=== PATIENT | female | born 1950 | race Caucasian/White ===

== ENCOUNTER 2016-12-18 17:10 | Inpatient (IN) ==
--- NOTE | 2016-12-18 18:15 | Emergency Department Note ---
Disposition Clinical Impression: DVT (deep venous thrombosis) Qualifiers: DVT location: lower extremity Affected thrombotic vein of extremity: unspecified vein of extremity Laterality: right Chronicity: acute Qualified Code (s): I82.401 - Acute embolism and thrombosis of unspecified deep veins of right lower extremity Disposition: Admitted As Inpatient Condition: Fair Referrals: Warren Echeverria MD [Primary Care Provider] - Forms: ED Satisfaction Letter Time of Disposition: 19:08 Extremity Problem HPI - General Chief complaint: ED Extremity Problem,Nontraumatic Stated complaint: (+) DVT Time Seen by Provider: 12/18/16 18:03 Source: patient Limitations: no limitations Nursing Notes Reviewed: Yes Vital Signs Reviewed: Yes - History of Present Illness HPI Narrative: 66-year-old female who had a hysterectomy at [facility] on December 09 who comes in today with right leg pain. Patient had a venous Doppler done today which showed a right common femoral incompressible vein and a right superficial femoral demonstrates a partially compressible pain the right popliteal demonstrates an incompressible pain. Pt Subjective Complaint: extremity pain, extremity swelling Onset (ago): day(s) Consistency: constant Injury Location: right, lower extremity Pain Scale: 9 Quality: burning, aching Radiation: none Improves with: nothing Worsens with: walking Associated symptoms: Reports: denies other symptoms. Denies: chest pain, shortness of breath Context: recent surgery/procedure - Related Data Home Medications Medication Instructions Recorded Confirmed Escitalopram [Lexapro] 10 mg PO QPM 12/05/15 06/04/16 traZODone [TraZODone] 100 mg PO QPM 12/05/15 06/04/16 Etodolac 300 mg PO DAILY 01/07/16 06/04/16 Previous Rx's Medication Instructions Recorded HYDROcodone/Acet 5/325 mg [[place] 1 tab PO BID PRN #30 tablet 06/04/16 5-325 mg] Allergies Allergy/AdvReac Type Severity Reaction Status Date / Time No Known Allergies Allergy Verified 01/07/16 08:35 Constitutional: Denies: fever, chills, weakness, weight change Eyes: Denies: eye pain, eye discharge, vision change ENT ED: Denies: ear pain, throat pain, dental pain, hearing loss, epistaxis, congestion, dysphagia Cardiovascular: Denies: chest pain, palpitations, dyspnea on exertion, edema, syncope Respiratory: Denies: cough, dyspnea, wheezes, hemoptysis, stridor Gastrointestinal: Denies: abdominal pain, nausea, vomiting, diarrhea, constipation, hematemesis, melena, hematochezia Genitourinary: Denies: dysuria, frequency, hematuria, discharge Musculoskeletal: Reports: arthralgia. Denies: back pain, neck pain, myalgia Integumentary: Denies: rash, abrasion, lesions Neurological: Denies: headache, weakness, numbness, paresthesias, confusion, abnormal gait, vertigo Psychiatric: Denies: anxiety, depression, suicidal thoughts, homicidal thoughts , auditory hallucinations, visual hallucinations Endocrine: Denies: fatigue Hematological/Lymphatic: Denies: easy bleeding, easy bruising Allergic/Immunologic: Denies: facial swelling, urticaria Past Medical History - Past Medical History Medical history: Reports: arthritis, asthma, other Surgical history: Reports: cholecystectomy, other Psychiatric history: Reports: anxiety, depression - Social History Smoking Status: Never smoker Smokeless Tobacco Status: No Alcohol use: Reports: none Drug use: Reports: none Physical Exam - General Limitations: no limitations General appearance: alert - Head Head exam: atraumatic, normocephalic, normal inspection - Eye Eye exam: Present: normal appearance, PERRL, EOMI - ENT ENT exam: normal exam, normal oropharynx, mucous membranes moist - Neck Neck exam: Present: normal inspection, full ROM, trachea midline - Chest Chest inspection: Present: normal inspection, symmetric chest wall rise - Respiratory Respiratory exam: Present: normal lung sounds bilaterally - Cardiovascular Cardiovascular exam: Present: regular rate, normal rhythm, normal heart sounds - Abdominal Exam Abdominal exam: Present: soft, Non-Tender. Absent: tenderness, distention, guarding, rebound, rigidity - Expanded Lower Extremity Exam Lower leg exam: Present: tenderness (Right calf), swelling Neurovascular/Tendon exam: Absent: motor deficit, sensory deficit, tendon deficit - Back Exam Back exam: Present: normal inspection, full ROM. Absent: tenderness - Neurological Exam Neurological exam: Present: alert, oriented X3 - Psychiatric Psychiatric exam: Present: normal affect, normal mood - Skin Skin exam: Present: warm, dry, intact, normal color Course - Reevaluation(s) Reevaluation #1: Patient is a 66-year-old with a documentation of a DVT. Patient will be admitted for Lovenox. Time: 19:09 - Consultations Consultation #1: Discussed with , admit to the hospitalist Kailey and he will see in consult. Time: 18:45 Consultation #2: Discussed with Dr. Balderas, admit. Time: 19:10 Vital Signs Temperature 98.2 F 12/18/16 17:21 Pulse Rate 62 12/18/16 17:21 Respiratory Rate 16 12/18/16 17:21 Blood Pressure 150/67 12/18/16 17:21 O2 Sat by Pulse Oximetry 97 12/18/16 17:21 Temperature 98.2 F 12/18/16 17:21 Pulse Rate 62 12/18/16 17:21 Respiratory Rate 16 12/18/16 17:21 Blood Pressure 150/67 12/18/16 17:21 O2 Sat by Pulse Oximetry 97 12/18/16 17:21 Oxygen Delivery Oxygen Delivery Room Air
[2016-12-18] MEDS ORDERED: Ondansetron 4 MG/2 ML VIAL IVP ONE (18:56)
[2016-12-18] MEDS ORDERED: *HR* HYDROmorphone (PF) 1 MG/ML SYRINGE IVP ONE (18:56)
[2016-12-18] MEDS ORDERED: *HR* Enoxaparin 120 MG/0.8 ML SYRINGE SQ SCH (19:15)
[2016-12-18 19:18] LABS: Basophils % 0.3 %; Eosinophils # 0.1 K/mcL (0.0-0.6); Eosinophils % 1.5 %; Hematocrit 40.5 % (35.3-44.9); Hemoglobin 13.6 g/dL (11.5-15.4); Immature Granulocytes % 0.4 % (0-4); Lymphocytes # 2.4 K/mcL (0.6-4.6); Lymphocytes % 26.9 %; Mean Corpuscular HGB Conc 33.6 g/dL (31.6-35.5); Mean Corpuscular Hemoglobin 32.2 pg (28.0-33.3); Mean Platelet Volume 10.6 fL (9.4-12.4); Monocytes # 0.7 K/mcL (0.0-1.3); Monocytes % 7.6 %; Neutrophils # 5.7 K/mcL (1.6-8.9); Platelet Count 220 K/mcL (140-400); Red Blood Count 4.22 M/mcL (3.82-4.97); Red Cell Distribution Width 12.9 % (11.5-14.5); Segmented Neutrophils % 63.3 %
[2016-12-18 19:22] LABS: INR 1.1
[2016-12-18 19:25] LABS: Activated Partial Thrombo Time 28.3 Seconds (26.0-36.0)
[2016-12-18 19:29] LABS: BUN/Creatinine Ratio 14 (6-26); Blood Urea Nitrogen 11 mg/dL (7-20); Calcium 9.1 mg/dL (8.6-10.8); Carbon Dioxide 24 mEq/L (19-29); Chloride 104 mEq/L (98-109); Glucose 85 mg/dL (70-99); Osmolality,Calculated 287 (280-300); Potassium 3.8 mEq/L (3.5-4.5); Sodium 139 mEq/L (136-145); eGFR For African Americans > 60 (> 60); eGFR For Non-African Americans > 60 (> 60)
--- NOTE | 2016-12-18 20:51 | Internal Med History&Physical ---
Date of Encounter: 12/18/16 Time of Encounter: 20:51 Assessment and Plan (1) DVT (deep venous thrombosis) Current visit: Yes Status: Acute patient recently had ?endometrial cancer diagnosis for which she underwent HOMAR+ BSO+lymph node biopsy and is scheduled to begin chemotherapy soon, she comes in today with RLE swelling in this setting and found to have an acute DVT in the femoral area, this is thus provoked, and will benefit from systemic anticoagulation for 3-6 months, we will get oncology to weigh in, we will do therapeutic lovenox dosing pain management and supportive care Qualifiers: DVT location: lower extremity Affected thrombotic vein of extremity: femoral Laterality: right Chronicity: acute Qualified Code(s): I82.411 - Acute embolism and thrombosis of right femoral vein (2) Reactive airway disease Current visit: Yes Status: Chronic currently stable, will do nebs PRN Qualifiers: Asthma severity: mild intermittent Asthma complication type: uncomplicated Qualified Code(s): J45.20 - Mild intermittent asthma, uncomplicated (3) Lumbar foraminal stenosis Current visit: Yes Status: Chronic per pt she was being planned for back surgery when they discovered the post menopausal bleed, this has thus been placed on the back burner for now, we will do pain management (4) GERD (gastroesophageal reflux disease) Current visit: Yes Status: Acute not on home medications, not symptomatic currently, will monitor Qualifiers: Esophagitis presence: without esophagitis Qualified Code(s): K21.9 - Gastro -esophageal reflux disease without esophagitis Internal Medicine - H&P: HPI Chief complaint: right lower extremity pain Admitted From: Emergency Dept Plans for Post Hospital Care: Home History of present illness: Ms. Osman is a 66 year old female with morbid obesity and recent HOMAR+BSO with lymph node dissection at [facility] on 12/09/16 who was brought in with right lower extremity pain and swelling. She was doing well until Wednesday night when she felt a "burning searing" pain in her right lower extremity that over the course of hours was increasingly worsening. The pain was 9/10 in severity and located mainly in the right calf area. It was worse with movement and was limiting her activities. She came in today because it was not improving. She denies dyspnea, dyspnea on exertion, pleuritic chest pain, lightheadedness or a feeling of apprehension. Of note she had the previously mentioned procedure because she was having post menopausal bleeding and endometrial biopsy was suspicious for malignancy. She is slated to be seen on 12/29/16 to start some form of chemotherapy. PAST MEDICAL/SURGICAL HISTORY Left knee arthritis multi level lumbar DJD Lumbar neural foramina stenosis L3/L4 through L5/S1 Lumbar radiculopathy Morbid Obesity GERD Reactive airway disease chronic back pain Cholecystectomy 2004 Tubal ligation Colonoscopy 2012 Back ablation 11/2015 [facility] 12/2015 SOCIAL HISTORY Non smoker, does not drink and lives at home FAMILY HISTORY Brother has Hodgkins lymphoma, bladder cancer, father is had liver cirrhosis with cancer sister's: breast cancer Past Med Surg Social Fam HX - Past Medical History Medical history: arthritis, asthma, other Psychiatric history: anxiety, depression - Past Surgical History Surgical History: cholecystectomy, other - Social History Smoking Status: Never smoker Smokeless Tobacco Status: No Alcohol use: none Drug use: none Internal Medicine - H&P: Meds HYDROcodone/Acet 5/325 mg [[place] 5-325 mg] 1 tab PO BID PRN #30 tablet 06/04/16 [Rx] Escitalopram [Lexapro] 20 mg PO HS 12/18/16 [History] OxyCODONE Immed Rel [Roxicodone 5 MG] 5 mg PO Q4H PRN 12/18/16 [History] Trazodone HCl 100 mg PO HS PRN 12/18/16 [History] Allergies No Known Allergies Allergy (Verified 01/07/16 08:35) All Systems PM: A 10-system review of systems was performed and is negative for pertinent findings except as documented above in the HPI. - Constitutional Vitals: Temp Pulse Resp BP Pulse Ox 98.1 F 64 18 138/66 97 12/18/16 20:00 12/18/16 19:30 12/18/16 20:00 12/18/16 20:00 12/18/16 19:30 PHYSICAL EXAMINATION: GENERAL: Adult female, obese looking, lying in bed with no sign of distress, Alert, HEENT: NC/AT, EOMI, PERRLA, anicteric sclera, normal conjunctiva, supple, clear nares, moist mucous membranes, clear oropharynx, central uvula RESP: lungs are clear to auscultation bilaterally, good AE bilaterally, No crackles or wheeze CARDIO: Normal hearts sounds; S1 and 2, RRR with no murmurs, no JVD, no ankle edema GI: Soft, full, no tenderness, no organomegaly felt, normal bowel sounds heard MUSCULOSKELETAL: grossly normal movements bilaterally, right lower extremity calf tenderness with mild swelling, no redness noted NEUROLOGIC: CN 2-12 intact grossly. No motor/sensory deficit appreciated, PSYCHIATRY: AAO x 3. Mood is fair, SKIN: no skin rash or ulcers noted Internal Med - H&P Results - Labs CBC & Chem 7: 12/19/16 02:35 12/19/16 02:35 - Diagnostic Studies Venous US Status: image reviewed by me
[2016-12-18] MEDS ORDERED: traZODone 50 MG TABLET PO PRN (21:12)
[2016-12-18] MEDS ORDERED: Naloxone 0.4 MG/ML INJ IVP PRN (21:13)
[2016-12-19] MEDS: *HR* OxyCODONE Immed Rel 5 MG TABLET PO PRN ×4 (00:02→18:44)
[2016-12-19 03:21] LABS: Hematocrit 35.6 % (35.3-44.9); Hemoglobin 12.2 g/dL (11.5-15.4); Mean Corpuscular HGB Conc 34.3 g/dL (31.6-35.5); Mean Corpuscular Hemoglobin 32.4 pg (28.0-33.3); Mean Corpuscular Volume 94.7 fL (83.0-100.0); Platelet Count 214 K/mcL (140-400); Red Blood Count 3.76 M/mcL (3.82-4.97); Red Cell Distribution Width 13.1 % (11.5-14.5)
[2016-12-19 03:42] LABS: BUN/Creatinine Ratio 16 (6-26); Blood Urea Nitrogen 12 mg/dL (7-20); Calcium 8.5 mg/dL (8.6-10.8); Carbon Dioxide 23 mEq/L (19-29); Chloride 105 mEq/L (98-109); Glucose 103 mg/dL (70-99); Magnesium 1.6 mg/dL (1.6-2.6); Osmolality,Calculated 282 (280-300); Phosphorous 4.1 mg/dL (2.3-4.7); Potassium 4.1 mEq/L (3.5-4.5); Sodium 136 mEq/L (136-145); eGFR For African Americans > 60 (> 60); eGFR For Non-African Americans > 60 (> 60)
[2016-12-19] MEDS: *HR* Enoxaparin 120 MG/0.8 ML SYRINGE SQ SCH ×2 (09:22→21:04)
--- NOTE | 2016-12-19 12:15 | Oncology Inp Consult Note ---
Date of Encounter: 12/19/16 Time of Encounter: 12:14 - Data of Consult Patient: new to practice Consult date: 12/19/16 Requesting Physician: Gwendolyn Dominguez Primary Care Provider: Warren Echeverria MD - Consult Narrative Reason for consult: Suspected hypercoagulable state History of present illness: Ms. Osman is a 66 year old female patient of Dr. Warren Echeverria seen in consultation regarding suspected hypercoagulable state after presenting with painful swelling in the right lower extremity in the postoperative setting. She had a HOMAR/BSO by Dr. 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 She was making steady, expected recovery from her surgery but developed painful swelling in her right lower extremity and worsening emergency room for this. Lower extremity Doppler confirmed an acute DVT involving the right common femoral, superficial femoral, popliteal veins. Left lower extremity was unremarkable. She is hospitalized for parenteral anticoagulation and hematology is consulted for recommendations regarding anticoagulation management and need for evaluation of suspected hypercoagulable state. Patient seen and examined at bedside. She is doing quite well and has no new physical complaints. She has never had any prior clotting episodes. No previous hematologic disorder. I do not have records of her recent surgery including pathology although endometrial biopsy by Dr. Lew, 11/18/16 showed poorly differentiated endometrial adenocarcinoma. She has been informed of the need for adjuvant radiation therapy based on pathology suggesting that she may have high risk disease. She will be meeting with Dr. Toledo in the near future for further discussion. Patient has not had any other respiratory symptoms to suggest underlying pulmonary embolism. She has not had any recent constitutional symptoms such as fevers, chills, weight or appetite changes, aquagenic pruritus etc. to suggest underlying hematologic disorder or malignancy. She is currently been anticoagulate with Lovenox and appears to be tolerating well with no unexpected side effects of bleeding complications. I reviewed her records for details of ongoing care by hospitalist team. The ED team was also kind enough to discuss patients case with me at time of initial presentation. Rest of past medical, surgical, family, social history detailed below and verified with patient today. Review of systems: 12 point review of systems performed with patient and positive findings noted in history of present illness. All other systems are negative: Physical exam: Vital Signs Temp 97.9 F 12/19/16 10:53 Pulse 65 12/19/16 10:53 Resp 16 12/19/16 10:53 BP 110/71 12/19/16 10:53 Pulse Ox 95 12/19/16 10:53 GENERAL: Alert and oriented, comfortable appearing. Obese body habitus. Mental Status: Affect appropriate for circumstances HEENT: Sclerae anicteric. No mucositis or thrush. No other oral or pharyngeal lesions or erythema. Skin: No rashes or petechiae. No evidence of skin malignancy Lymph nodes: No cervical, supraclavicular, axillary, or inguinal adenopathy. Lungs: Clear to auscultation bilaterally. Clear to percussion bilaterally. Cardiovascular: Regular rate and rhythm. No gallops, murmurs, or rubs. Abdomen: Soft, nontender; No organomegaly or masses palpable. Extremities: No edema. No calf swelling or tenderness. No joint deformity. Neurologic: Alert, normal gait; no focal weakness or sensory abnormalities. Results: Laboratory Last Values WBC 8.2 K/mcL (4.3-11.1) 12/19/16 02:35 RBC 3.76 M/mcL (3.82-4.97) L 12/19/16 02:35 Hgb 12.2 g/dL (11.5-15.4) 12/19/16 02:35 Hct 35.6 % (35.3-44.9) 12/19/16 02:35 MCV 94.7 fL (83.0-100.0) 12/19/16 02:35 MCH 32.4 pg (28.0-33.3) 12/19/16 02:35 MCHC 34.3 g/dL (31.6-35.5) 12/19/16 02:35 RDW 13.1 % (11.5-14.5) 12/19/16 02:35 Plt Count 214 K/mcL (140-400) 12/19/16 02:35 MPV 11.0 fL (9.4-12.4) 12/19/16 02:35 Immature Gran % 0.4 % (0-4) 12/18/16 19:05 Seg Neutrophils % 63.3 % 12/18/16 19:05 Lymphocytes % 26.9 % 12/18/16 19:05 Monocytes % 7.6 % 12/18/16 19:05 Eosinophils % 1.5 % 12/18/16 19:05 Basophils % 0.3 % 12/18/16 19:05 Neutrophils # 5.7 K/mcL (1.6-8.9) 12/18/16 19:05 Lymphocytes # 2.4 K/mcL (0.6-4.6) 12/18/16 19:05 Monocytes # 0.7 K/mcL (0.0-1.3) 12/18/16 19:05 Eosinophils # 0.1 K/mcL (0.0-0.6) 12/18/16 19:05 Basophils # 0.0 K/mcL (0.0-0.2) 12/18/16 19:05 PT 12.0 Seconds (9.4-12.1) 12/18/16 19:05 INR 1.1 12/18/16 19:05 APTT 28.3 Seconds (26.0-36.0) 12/18/16 19:05 Sodium 136 mEq/L (136-145) 12/19/16 02:35 Potassium 4.1 mEq/L (3.5-4.5) 12/19/16 02:35 Chloride 105 mEq/L (98-109) 12/19/16 02:35 Carbon Dioxide 23 mEq/L (19-29) 12/19/16 02:35 BUN 12 mg/dL (7-20) 12/19/16 02:35 Creatinine 0.76 mg/dL (0.57-1.11) 12/19/16 02:35 Est GFR ( Amer) > 60 (> 60) 12/19/16 02:35 Est GFR (Non-Af Amer) > 60 (> 60) 12/19/16 02:35 BUN/Creatinine Ratio 16 (6-26) 12/19/16 02:35 Glucose 103 mg/dL (70-99) H 12/19/16 02:35 Calculated Osmolality 282 (280-300) 12/19/16 02:35 Calcium 8.5 mg/dL (8.6-10.8) L 12/19/16 02:35 Phosphorus 4.1 mg/dL (2.3-4.7) 12/19/16 02:35 Magnesium 1.6 mg/dL (1.6-2.6) 12/19/16 02:35 Radiographic studies: Impression/recommendations: Right lower extremity DVT: Likely provoked by recent high risk surgery ( hysterectomy) but there may have been an additional contribution from body habitus. At today's visit, I had a detailed discussion with the patient regarding the natural history and management of venous thromboembolic disorders. For her acute DVT, he will require anticoagulation for 3-6 months depending on recurrence risk factors and residual clot burden on imaging. After she completes planned course of anticoagulation, we will check extremity doppler and chest CT angiogram to eval. residual clot burden prior to stopping anticoagulation. She is currently on anticoagulation with Lovenox and we discussed options for oral anticoagulation. We discussed the risks versus benefits of Coumadin compared to NOACs. She is comfortable with NOACs and has no contraindication. I think it is reasonable to go ahead and transition her to any of the different of NOACs options such as Xarelto, Eliquis, Pradaxa depending on her coverage situation. I will recommend to give a first his overall anticoagulant within 1 her last dose of Lovenox and then stop Lovenox. Once she is on oral anticoagulation, she can be discharged home and will arrange for short interval out patient follow up with hematology for ongoing management including anticoagulation monitoring. Long-term, high-risk medication use:. We reviewed the risks versus benefits of long-term anticoagulation including thromboprophylaxis benefit versus bleeding risk. She is tolerating anticoagulation well with no unexpected complications. She will require continued monitoring for tolerability of anticoagulation. I informed that either myself or will be happy to monitor her anticoagulation. She will need monitoring of basic coagulation panel, CBCs, liver/kidney function periodically. Additionally, she understands that if any surgical or invasive procedures planned, she will need periprocedural anticoagulation management. Suspected hypercoagulable state: Her current presentation has also signatures of unprovoked clot in the perioperative setting but we will go ahead and complete thrombophilia testing for completeness. This can be completed on an urgent basis when we are ready to consider stopping anticoagulation. If thrombophilia testing is negative, we'll consider lower intensity strategy such as LDASA, or stop altogether if no other risk factors. We'll follow the patient along side you during this hospitalization but please do not hesitate to call regarding interval hematologic questions as they arise. Thank you for your excellent ongoing care for allowing us to see her while in- house. This report was created using voice recognition software and may contain errors. It was signed but not edited to expedite communication. Corrections will be made in a separate addendum as needed. Past Med Surg Social Fam HX - Past Medical History Medical history: arthritis, asthma, other Psychiatric history: anxiety, depression - Past Surgical History Surgical History: cholecystectomy, other - Social History Smoking Status: Never smoker Smokeless Tobacco Status: No Alcohol use: none Drug use: none Medications and Allergies HYDROcodone/Acet 5/325 mg [[place] 5-325 mg] 1 tab PO BID PRN #30 tablet 06/04/16 [Rx] Escitalopram [Lexapro] 20 mg PO HS 12/18/16 [History] OxyCODONE Immed Rel [Roxicodone 5 MG] 5 mg PO Q4H PRN 12/18/16 [History] Trazodone HCl 100 mg PO HS PRN 12/18/16 [History] Allergies No Known Allergies Allergy (Verified 01/07/16 08:35) Oncology - Exam - Constitutional Vitals: Temp Pulse Resp BP Pulse Ox 97.9 F 65 16 110/71 95 12/19/16 10:53 12/19/16 10:53 12/19/16 10:53 12/19/16 10:53 12/19/16 10:53 Oncology - Results - Labs Labs: Short CBC 12/19/16 Range/Units 02:35 WBC 8.2 (4.3-11.1) K/mcL Hgb 12.2 (11.5-15.4) g/dL Hct 35.6 (35.3-44.9) % Plt Count 214 (140-400) K/mcL BMP 12/19/16 02:35 Sodium 136 Potassium 4.1 Chloride 105 Carbon Dioxide 23 BUN 12 Creatinine 0.76 Glucose 103 H Calcium 8.5 L Consult Discharge Plan - Plan Referrals: Warren Echeverria MD [Primary Care Provider] - (web request sent on 12/19/16)
--- NOTE | 2016-12-19 14:45 | Internal Med Progress Note ---
Date of Encounter: 12/19/16 Time of Encounter: 10:00 - Subjective Interval history: Patient reports worsening of swelling of right lower extremity with no associated pain. No shortness of breath. No chest pain. No headaches. No Lightheadedness. - Constitutional Vitals: Temp Pulse Resp BP Pulse Ox 97.9 F 65 16 110/71 95 12/19/16 10:53 12/19/16 10:53 12/19/16 10:53 12/19/16 10:53 12/19/16 10:53 General appearance: Present: cooperative, A&O X 3, pleasant, no acute distress, answers questions appropriately - Neck Neck exam general surgery: Present: supple, trachea midline. Absent: lymphadenopathy - Respiratory Respiratory exam: Present: CTAB - Cardiovascular Cardiovascular exam: Present: RRR - GI/Abdominal GI/Abdominal exam: Present: normal bowel sounds, soft. Absent: distended, tenderness - Extremities Exam Additional comments: Right lower extremity swelling, no erythema - Back Exam Back exam: Absent: CVA tenderness (L), CVA tenderness (R) - Neurological Exam Neurological exam: Present: alert, oriented X3, no focal deficits, strengths equal and symetr throughout. Absent: facial droop, speech deficit - Skin Skin exam: Absent: rash Internal Medicine: Result - Labs CBC & Chem 7: 12/19/16 02:35 12/19/16 02:35 Labs: Short CBC 12/19/16 Range/Units 02:35 WBC 8.2 (4.3-11.1) K/mcL Hgb 12.2 (11.5-15.4) g/dL Hct 35.6 (35.3-44.9) % Plt Count 214 (140-400) K/mcL [facility] 12/19/16 02:35 Sodium 136 Potassium 4.1 Chloride 105 Carbon Dioxide 23 BUN 12 Creatinine 0.76 Glucose 103 H Calcium 8.5 L - ABG Interpretation ABG results: PT/INR, D-dimer PT 12.0 Seconds (9.4-12.1) 12/18/16 19:05 Consult Discharge Plan - Plan Referrals: Warren Echeverria MD [Primary Care Provider] - (web request sent on 12/19/16)
[2016-12-20] MEDS: *HR* OxyCODONE Immed Rel 5 MG TABLET PO PRN ×2 (04:21→09:06)
[2016-12-20 04:43] LABS: Basophils % 0.3 %; Eosinophils # 0.2 K/mcL (0.0-0.6); Eosinophils % 2.1 %; Hematocrit 39.4 % (35.3-44.9); Hemoglobin 13.1 g/dL (11.5-15.4); Immature Granulocytes % 0.4 % (0-4); Lymphocytes # 2.6 K/mcL (0.6-4.6); Lymphocytes % 28.5 %; Mean Corpuscular HGB Conc 33.2 g/dL (31.6-35.5); Mean Corpuscular Hemoglobin 31.7 pg (28.0-33.3); Mean Corpuscular Volume 95.4 fL (83.0-100.0); Mean Platelet Volume 10.5 fL (9.4-12.4); Monocytes # 0.7 K/mcL (0.0-1.3); Monocytes % 7.7 %; Neutrophils # 5.5 K/mcL (1.6-8.9); Platelet Count 259 K/mcL (140-400); Red Blood Count 4.13 M/mcL (3.82-4.97); Red Cell Distribution Width 12.7 % (11.5-14.5)
[2016-12-20 04:55] LABS: BUN/Creatinine Ratio 14 (6-26); Blood Urea Nitrogen 11 mg/dL (7-20); Calcium 9.1 mg/dL (8.6-10.8); Carbon Dioxide 21 mEq/L (19-29); Chloride 107 mEq/L (98-109); Glucose 112 mg/dL (70-99); Magnesium 1.7 mg/dL (1.6-2.6); Osmolality,Calculated 286 (280-300); Potassium 4.2 mEq/L (3.5-4.5); Sodium 138 mEq/L (136-145); eGFR For African Americans > 60 (> 60); eGFR For Non-African Americans > 60 (> 60)
--- NOTE | 2016-12-20 08:58 | Discharge Summary ---
Date of Encounter: 12/20/16 Time of Encounter: 08:54 - Discharge Diagnosis (1) DVT (deep venous thrombosis) Priority: Primary Status: Acute Qualifiers: DVT location: lower extremity Affected thrombotic vein of extremity: femoral Laterality: right Chronicity: acute Qualified Code(s): I82.411 - Acute embolism and thrombosis of right femoral vein (2) Lumbar foraminal stenosis Priority: Secondary Status: Chronic (3) GERD (gastroesophageal reflux disease) Priority: Secondary Status: Chronic Qualifiers: Esophagitis presence: without esophagitis Qualified Code(s): K21.9 - Gastro -esophageal reflux disease without esophagitis - Discharge Medications Prescriptions: Rivaroxaban [Xarelto] 1 dose PO AD 30 Days Rivaroxaban [Xarelto] 20 mg PO DAILY #30 tablet Home Medications: HYDROcodone/Acet 5/325 mg [Stark 5-325 mg] 1 tab PO BID PRN #30 tablet 06/04/16 [Rx] Escitalopram [Lexapro] 20 mg PO HS 12/18/16 [History] OxyCODONE Immed Rel [Roxicodone 5 MG] 5 mg PO Q4H PRN 12/18/16 [History] Trazodone HCl 100 mg PO HS PRN 12/18/16 [History] Rivaroxaban [Xarelto] 1 dose PO AD 30 Days 12/20/16 [Rx] Rivaroxaban [Xarelto] 20 mg PO DAILY #30 tablet 12/20/16 [Rx] Allergies/Adverse Reactions: Allergies No Known Allergies Allergy (Verified 01/07/16 08:35) Date of admission: 12/19/16 16:05 Primary care physician: Warren Echeverria MD - Patient Status Disposition: Home, Self-Care Condition: Good Functional capacity at discharge: independent ambulation Overall status at discharge: patient is progressing back to baseline - Discharge Instructions Instructions: Rivaroxaban (By mouth), Deep Venous Thrombosis (DC) Follow Up With: Warren Echeverria MD [Primary Care Provider] - (web request sent on 12/19/16) Additional Instructions: please follow up with primary care doctor in 1 week to start a weight loss program. follow up in the hematology clinic with dr Barron for blood clot in your leg (he will call you with appt) you are being prescribed a blood thinner, if you notice any bleeding please call your doctor or go to nearest emergency room - Diet and Activity Activity: resume usual activities as tolerated Diet: low fat, low cholesterol Interval History: patient denies any shortness of breath or chest pain. no worsening of right LE swelling. Hospital course: Ms. Osman is a 66 year old female with past medical history of chronic lumbar back pain and morbid obesity who was recently diagnosed with endometrial cancer and underwent HOMAR/BSO/lymph node biopsy on 12/09/2016 and she is scheduled to start radiation therapy on December 29. She presents with a chief complaint of right lower extremity pain and swelling. Venous Doppler of right lower extremity shows acute thrombosis in right common femoral vein, superficial femoral vein and popliteal vein. Normal left lower extremity venous Doppler. She was started on Lovenox twice a day. Her acute DVT is likely provoked from recent surgery. She remained hemodynamically stable, no chest pain, no shortness of breath. Right lower extremity swelling did not get worse. Plan: Patient will be discharged on Cerner L2. Follow-up in the oncology clinic. Patient was explained in detail her diagnosis and treatment. She verbalized understanding and agreed with the plan. All questions answered. - Time Spent with Patient Total time spent providing and/or coordinating discharge services: - Constitutional Vitals: Temp Pulse Resp BP Pulse Ox 97.9 F 72 16 119/69 97 12/20/16 07:52 12/20/16 07:52 12/20/16 07:52 12/20/16 07:52 12/20/16 07:52 General appearance: Present: cooperative, A&O X 3, pleasant, no acute distress, answers questions appropriately - Neck Neck exam general surgery: Present: supple, trachea midline. Absent: lymphadenopathy - Respiratory Respiratory exam: Present: CTAB - Cardiovascular Cardiovascular exam: Present: RRR - GI/Abdominal GI/Abdominal exam: Present: normal bowel sounds, soft. Absent: distended, tenderness - Extremities Exam Extremities exam: Present: pedal edema (mild right lower extremity swelling, not worse compared to yesterday. no erythema. ) - Neurological Exam Neurological exam: Present: alert, oriented X3, no focal deficits, strengths equal and symetr throughout. Absent: facial droop, speech deficit - Skin Skin exam: Absent: rash
[2016-12-20] MEDS ORDERED: *HR* Rivaroxaban 15 MG TABLET PO SCH (09:00)
[2016-12-20 11:27] VITALS: BP 133/70
== END 2016-12-20 12:12 | disposition home or self-care (01) | DRG 300 ==
LOC: 2ANU 17:10 → EMEROO 17:10 → SUATTDRO 19:48 → 2ANU 20:08
PROVIDERS: ADMIT Internal Medicine; ATTEND Internal Medicine

== ENCOUNTER 2020-01-02 16:11 | Inpatient (IN) ==
[2020-01-02] MEDS ORDERED: Ondansetron ODT 4 MG TAB.RAPDIS SL STA (17:14)
[2020-01-02] MEDS ORDERED: *HR* Promethazine 25 MG/ML VIAL IVP STA (17:42)
[2020-01-02 17:51] LABS: Troponin I < 0.03 ng/mL (< 0.04)
[2020-01-02] MEDS ORDERED: 0.9 % Sodium Chloride 1,000 ML ONE (17:55)
[2020-01-02] MEDS ORDERED: Isovue-370 500 ML BOTTLE IVP ONE (18:20)
[2020-01-02] MEDS ORDERED: 0.9 % Sodium Chloride 1,000 ML IV ONE (20:11)
[2020-01-02 21:18] LABS: C-Reactive Protein 17 mg/L (Less than 10)
[2020-01-02] MEDS ORDERED: Ondansetron ODT 4 MG TAB.RAPDIS SL PRN (21:35)
[2020-01-02] MEDS ORDERED: Naloxone 0.4 MG/ML INJ IVP PRN (21:35)
[2020-01-02] MEDS ORDERED: traZODone 50 MG TABLET PO PRN (21:39)
[2020-01-02] MEDS ORDERED: *HR* HYDROcodone/Acet 5/325 mg TABLET PO PRN (21:39)
[2020-01-02] MEDS ORDERED: Ringers Solution, Lactated 1,000 ML IVC SCH (21:45)
[2020-01-02] MEDS ORDERED: Calcium Gluconate 1gm/50mL 1 GM/50 ML BAG IVPB ONE (22:57)
[2020-01-03 02:19] LABS: Bilirubin,Urine Negative (Negative); Blood,Urine Moderate (Negative); Clarity,Urine Clear (Clear); Color,Urine Yellow (Yellow); Glucose,Urine (UA) Normal (Normal); Ketones,Urine Negative (Negative); Leukocyte Esterase,Urine Small (Negative); Nitrite,Urine Negative (Negative); PH,Urine 5.5 pH Units (5.0-8.0); Protein,Urine 30 mg/dL (Neg-Trace); Specific Gravity,Urine > 1.030 (1.010-1.025); Urobilinogen,Urine Normal (Normal)
[2020-01-03 02:21] LABS: Bacteria,Urine Few per hpf (None-Few); Hyaline Casts,Urine None Seen per lpf (None-Few); RBC,Urine 30-50 per hpf (0-3); Squamous Epithelial Cell,Urine Many per lpf (None-Few); WBC,Urine 50-100 per hpf (0-3)
[2020-01-03 04:53] LABS: Basophils % 0.5 %; Eosinophils # 0.1 K/mcL (0.0-0.6); Eosinophils % 3.1 %; Hematocrit 26.9 % (35.3-44.9); Immature Granulocytes % 0.5 % (0-4); Immature Platelets 2.5 % (1.1-6.1); Immature Reticulocyte % 34.1 % (11.0-38.0); Lymphocytes # 0.2 K/mcL (0.6-4.6); Lymphocytes % 9.7 %; Mean Corpuscular HGB Conc 33.5 g/dL (31.6-35.5); Mean Corpuscular Hemoglobin 32.4 pg (28.0-33.3); Mean Corpuscular Volume 96.8 fL (83.0-100.0); Mean Platelet Volume 10.1 fL (9.4-12.4); Monocytes # 0.2 K/mcL (0.0-1.3); Monocytes % 11.8 %; Neutrophils # 1.5 K/mcL (1.6-8.9); Red Blood Count 2.78 M/mcL (3.82-4.97); Red Cell Distribution Width 12.3 % (11.5-14.5); Retculocyte # 0.02 M/mcL (0.05-0.10); Reticulocyte % 0.8 % (1.6-2.8); Segmented Neutrophils % 74.4 %
[2020-01-03 05:04] LABS: Platelet Count 69 K/mcL (140-400)
[2020-01-03 05:15] LABS: % Iron Saturation 84 % (15-50); Alanine Aminotransferase 175 Units/L (7-52); Albumin 2.9 g/dL (3.5-5.7); Albumin/Globulin Ratio 1.3 (1.1-2.2); Alkaline Phosphatase 42 Units/L (34-104); Aspartate Amino Transferase 67 Units/L (13-39); BUN/Creatinine Ratio 14 (6-26); Bilirubin,Total 0.4 mg/dL (0.3-1.0); Blood Urea Nitrogen 12 mg/dL (8-23); Calcium 6.9 mg/dL (8.6-10.3); Carbon Dioxide 28 mEq/L (23-29); Chloride 106 mEq/L (98-107); Globulin 2.2 g/dL (2.4-3.5); Glucose 95 mg/dL (70-105); Iron 179 mcg/dL (50-170); Osmolality,Calculated 290 (280-300); Phosphorous 2.8 mg/dL (2.7-4.5); Potassium 3.2 mEq/L (3.5-5.1); Sodium 140 mEq/L (136-145); Total Protein 5.1 g/dL (6.4-8.9); Transferrin 152 mg/dL (203-362); Troponin I < 0.03 ng/mL (< 0.04); eGFR For African Americans > 60 (> 60); eGFR For Non-African Americans > 60 (> 60)
[2020-01-03 05:32] LABS: Ferritin 652 ng/mL (10-120)
[2020-01-03 05:33] LABS: Hepatitis B Surface Antigen Nonreactive (Nonreactive)
[2020-01-03 05:36] LABS: Folate 9.3 ng/mL (3.0-16.0)
[2020-01-03 06:01] LABS: Hepatitis C Virus Antibody Nonreactive (Nonreactive)
[2020-01-03 06:02] LABS: Hepatitis B Core IgM Nonreactive (Nonreactive)
[2020-01-03 08:17] LABS: Estimated Average Glucose 143 mg/dl
[2020-01-03] MEDS: *HR* Rivaroxaban 15 MG TABLET PO SCH (08:50)
[2020-01-03] MEDS ORDERED: Calcium Gluconate 1gm/50mL 1 GM/50 ML BAG IVPB ONE (09:19)
[2020-01-03] MEDS ORDERED: Potassium Chloride Elixir 20 MEQ/15 ML UDC PO ONE (10:32)
[2020-01-03 13:31] LABS: Hepatitis A Antibody IgM Nonreactive (Nonreactive)
[2020-01-03] MEDS ORDERED: Dextrose Gel 15 GM/37.5 ML TUBE PO PRN ×2 (13:38)
[2020-01-03] MEDS ORDERED: D5% in Water 1,000 ML IVC PRN (13:38)
[2020-01-03] MEDS ORDERED: *HR* Dextrose 50 % in Water (Syg) 50 ML SYRINGE IVP PRN (13:38)
[2020-01-03] MEDS: Insulin LISPRO 300 UNITS/3 ML VIAL SQ SCH ×2 (14:05→17:20)
[2020-01-03 18:35] LABS: BUN/Creatinine Ratio 13 (6-26); Blood Urea Nitrogen 11 mg/dL (8-23); Calcium 7.2 mg/dL (8.6-10.3); Carbon Dioxide 29 mEq/L (23-29); Chloride 105 mEq/L (98-107); Glucose 108 mg/dL (70-105); Magnesium 1.7 mg/dL (1.6-2.6); Osmolality,Calculated 290 (280-300); Potassium 3.1 mEq/L (3.5-5.1); Sodium 140 mEq/L (136-145); eGFR For African Americans > 60 (> 60); eGFR For Non-African Americans > 60 (> 60)
[2020-01-03] MEDS ORDERED: NON-FORMULARY MEDICATION 1 EACH EACH (Trazodone Hcl 100 MG) PO SCH (21:00)
[2020-01-03] MEDS ORDERED: Insulin LISPRO 300 UNITS/3 ML VIAL SQ SCH (21:00)
[2020-01-03] MEDS ORDERED: Potassium Chloride 40 MEQ, Lidocaine 1% 2 ML in 0.9 % Sodium Chloride 500 ML IVPB ONE (22:00)
[2020-01-04 03:37] LABS: Red Blood Count 3.11 M/mcL (3.82-4.97)
[2020-01-04 03:38] LABS: Basophils % 0.5 %; Eosinophils # 0.1 K/mcL (0.0-0.6); Eosinophils % 2.8 %; Hematocrit 30.1 % (35.3-44.9); Immature Granulocytes % 0.5 % (0-4); Immature Platelets 2.4 % (1.1-6.1); Lymphocytes # 0.3 K/mcL (0.6-4.6); Mean Corpuscular HGB Conc 33.2 g/dL (31.6-35.5); Mean Corpuscular Hemoglobin 32.2 pg (28.0-33.3); Mean Corpuscular Volume 96.8 fL (83.0-100.0); Mean Platelet Volume 9.8 fL (9.4-12.4); Monocytes # 0.3 K/mcL (0.0-1.3); Monocytes % 12.9 %; Neutrophils # 1.6 K/mcL (1.6-8.9); Red Cell Distribution Width 12.3 % (11.5-14.5); Segmented Neutrophils % 71.3 %; White Blood Count 2.2 K/mcL (4.3-11.1)
[2020-01-04 03:39] LABS: Platelet Count 81 K/mcL (140-400)
[2020-01-04 03:56] LABS: BUN/Creatinine Ratio 12 (6-26); Blood Urea Nitrogen 10 mg/dL (8-23); Calcium 7.4 mg/dL (8.6-10.3); Carbon Dioxide 27 mEq/L (23-29); Chloride 106 mEq/L (98-107); Glucose 105 mg/dL (70-105); Magnesium 1.6 mg/dL (1.6-2.6); Osmolality,Calculated 289 (280-300); Phosphorous 2.8 mg/dL (2.7-4.5); Potassium 3.8 mEq/L (3.5-5.1); Sodium 140 mEq/L (136-145); eGFR For African Americans > 60 (> 60); eGFR For Non-African Americans > 60 (> 60)
[2020-01-04 06:48] VITALS: BP 135/80
[2020-01-04] MEDS: Insulin LISPRO 300 UNITS/3 ML VIAL SQ SCH (08:35)
[2020-01-04] MEDS: *HR* Rivaroxaban 15 MG TABLET PO SCH (08:39)
[2020-01-04] MEDS ORDERED: Cyanocobalamin (B-12) 1,000 MCG/ML VIAL SQ SCH (09:00)
== END 2020-01-04 10:40 | disposition home or self-care (01) | DRG 809 ==
LOC: EMEROOARM 16:11 → 3BNU 16:11 → SUATTDRO 20:32 → 3BNU 22:11
PROVIDERS: ADMIT Family Medicine; ATTEND Internal Medicine